=== PATIENT | male | born 1950 | race Caucasian/White ===

== ENCOUNTER → 2017-08-15 | Outpatient (CLI) | payer OTHER ==
[~2017-08-15] MED LIST: AUGMENTIN 875 M1 TAB PO; COPAXONE40 MG/ML SC; COZAAR50 M1 PO; LEVOTHYROXIN0.075 MG PO; LOPRESSOR50 M1 PO; MIRTAZAPINE15 M2 PO; Motrin,Rufen800 MG PO; OMEPRAZOLE MAGN20 MG PO; OMEPRAZOLE20 M2 PO; ZOFRAN4 MG PO
== END | disposition home or self-care (01) ==
LOC: US 07:07
DX: K76.0 Fatty (change of) liver, not elsewhere classified (principal); R16.1 Splenomegaly, not elsewhere classified; E11.9 Type 2 diabetes mellitus without complications; E78.5 Hyperlipidemia, unspecified; Z90.49 Acquired absence of other specified parts of digestive tract

== ENCOUNTER → 2019-05-23 | Outpatient (CLI) | payer OTHER | END | disposition home or self-care (01) | LOC: US 09:13 | DX: K76.0 Fatty (change of) liver, not elsewhere classified (principal) ==

== ENCOUNTER → 2019-05-30 | Outpatient (CLI) | payer OTHER | END | disposition home or self-care (01) | LOC: LAB 12:47 → US 13:00 | DX: N28.1 Cyst of kidney, acquired (principal); D40.0 Neoplasm of uncertain behavior of prostate; E11.9 Type 2 diabetes mellitus without complications; I10 Essential (primary) hypertension; N28.89 Other specified disorders of kidney and ureter ==

== ENCOUNTER → 2020-12-16 | Outpatient (CLI) | payer OTHER | END | disposition home or self-care (01) | LOC: US 12-14 12:00 | PROVIDERS: ATTEND Nurse Practitioner Family | DX: K76.0 Fatty (change of) liver, not elsewhere classified (principal); N28.1 Cyst of kidney, acquired; Z90.49 Acquired absence of other specified parts of digestive tract ==